=== PATIENT | female | born 1960 | race Caucasian/White ===

== ENCOUNTER 2021-03-12 07:43 | Emergency (ER) | payer SELFPAY ==
[2021-03-12 07:58] VITALS: BP 131/82; PULSE 93; RESP 18; TEMP 36.9; O2SAT 98; BMI 20.5
--- NOTE | 2021-03-12 08:17 | ED_ITS ---
HPI - Head Injury General Chief complaint: Head Injury Stated complaint: trunk lid came down on side of head Time Seen by Provider: 03/12/21 08:16 Source: patient and other (friend at bedside) Mode of arrival: Ambulatory Limitations: no limitations History of Present Illness HPI Narrative: This is a 60-year-old female comes with complaint of laceration to the left forehead. Patient states that the trunk of her cough has had trouble closing. She states that she has been using a stick in order to hold it and this had fallen on the ground. When she bent over to grape picker a stick the trunk fell closed hitting her on the side of her head causing a laceration. Patient states her head is feeling better now initially was painful. Patient states that it did bleed initially but has stopped. She denies any dizziness, no loss of consciousness, no neck or back pain. No nausea. No vomiting. She denies any new numbness, tingling or weakness. Patient denies any other major medical issues at this time. She states she is not on any daily medications. She denies any anticoagulant. She is a daily smoker. She is unsure if her tetanus is up-to-date. Patient does describe herself as homeless. We discussed if she would be interested in having our social welfare research worker reach out to her. She does express interest and states she has also been in contact with the service out of [facility]. Related Data Allergies Allergy/AdvReac Type Severity Reaction Status Date / Time No Known Drug Allergies Allergy Verified 03/12/21 07:58 Review of Systems Review of Systems ROS Unobtainable: All systems reviewed & are unremarkable except as noted in HPI and below Patient History Social History Smoking Status: Current every day smoker Smoking Status: Current every day smoker tobacco type: cigarettes alcohol intake frequency: other Substance Use Type: marijuana Exam Narrative Exam Narrative: GEN: Patient appears in mild distress. HEAD: Patient has a laceration on the left forehead, it is well aligned without gap, no raccoon/Magana sign. NECK: Nontender, painless range of motion, trachea midline Negative Nexus criteria, there is no mid line tenderness, distracting injury, altered mental status, neuro deficit, recent EtOH. EYES: PERRLA, EOMI ENT: External inspection normal, trachea is midline, TM's are normal no hemotypanum, Nares are clear, no septal hematoma, no dental or oral injury, airway is normal and with normal occlusion, No bony tenderness RESP: Chest is nontender and has symmetric movement, no ecchymosis, breath so unds are normal no crackles, wheezes or rales CVS: Heart sounds are normal, no murmur noted, No JVD. ABG/GI: Nontender, soft, normal bowel sounds, no distention, no organomegaly. NEURO: Oriented AOx3, neuro is grossly intact, sensation and motor is normal all 4 extremities moving, cranial nerves II through XII are intact, GCS is 15 PSYCH: Normal mood and affect SKIN: Intact other than above, warm and dry, no crepitus and without decubitus BACK: No CVA tenderness, no vertebral tenderness, no step-off's, no crepitus EXT: Atraumatic, hips are nontender, normal range of motion. Initial Vital Signs Initial Vital Signs: Vital Signs Temperature 98.4 F 03/12/21 07:58 Pulse Rate 93 H 03/12/21 07:58 Respiratory Rate 18 03/12/21 07:58 Blood Pressure 131/82 03/12/21 07:58 Pulse Oximetry 98 03/12/21 07:58 Procedures Laceration Repair Laceration 1: Site: face Side (If applicable): left (forehead above left brow) Size (cm): 3 Description: linear Depth: simple, single layer Pre-repair: irrigated extensively (cleansed with saline) Skin layer closed with: dermabond (and steristrips.) Scores [place] Head Rule Age <16 years old: No Patient on blood thinners: No Seizure after injury: No Exclusion: Patient NOT Excluded, Proceed to next steps GCS [place] coma scale eye opening: Spontaneous [place] coma scale verbal response: Orientated [place] coma scale motor response: Obey commands Philip coma scale total score: 15 Course Orders Ordered: Discontinued Medications Diphtheria/Tetanus/Acell Pertussis (Tet,Diph,Pertuss(Acell),Vac/Pf 0.5 Ml Syringe) 0.5 ml IM .ONCE ONE Stop: 03/12/21 08:26 Last Admin: 03/12/21 08:51 Dose: 0.5 ml Documented by: VERONICA Vital Signs Vital signs: Vital Signs - 8 hr 03/12/21 07:58 Temperature 98.4 F Pulse Rate 93 H Respiratory Rate 18 Blood Pressure 131/82 Pulse Oximetry 98 MDM - Head Injury MDM Narrative Medical decision making narrative: This is a 60-year-old female with a laceration to the left forehead. After evaluation discussed with patient offered sutures versus Dermabond and Steri-Strips. I think patient would heal well with either option and patient defers sutures. Patient does not have any high risk factors that would necessitate imaging. No signs or symptoms of concussion. Discharge Plan Departure Patient Disposition: Home Clinical Impression: Forehead laceration Instructions: DI for Laceration Repair-Skin Glue Activity Restrictions/Additional Instructions: You may take Tylenol and/or ibuprofen as needed for pain. Wound Care: Keep wound(s) clean and dry. Wash daily with soap and water only. Pat dry. Trim edges of the steri-strips if they start to peel off. Do not use over the counter products (alcohol or peroxide)on the wounds unless instructed by a physician. This will cause the dermabond to disintegrate. If wound condition worsens (increased/expanding redness, developing fluid blisters, or worsening pain), either contact your doctor for an urgent re- assessment , or return to the Emergency Department. Return to the Emergency Department for any new or worsening symptoms. Return if fever greater than 100.4 Fahrenheit, increased swelling, increasing pain or worsening symptoms such as increased discharge or spreading redness. Confusion, altered mental status, severe headaches, persistent vomiting, vision changes, new weakness numbness or tingling or other new or concerning symptoms.
[2021-03-12] MEDS: TET,DIPH,PERTUSS(ACELL),VAC/PF 0.5 ML SYRINGE IM (08:51)
== END 2021-03-12 08:55 | disposition home or self-care (01) ==
PROVIDERS: Emergency Provider Emergency Medicine
DX: S01.81XA Laceration without foreign body of other part of head, initial encounter (principal); W22.8XXA Striking against or struck by other objects, initial encounter; Z23 Encounter for immunization
CPT/HCPCS: 90471; 99283; 90715

== ENCOUNTER → 2022-07-16 16:38 | Outpatient (CLI) | payer OTHER, MEDICAID, SELFPAY | PROVIDERS: Visit Provider Nurse Practitioner Family | DX: L08.9 Local infection of the skin and subcutaneous tissue, unspecified (principal) | CPT/HCPCS: 87070; 87075; 87077; 87147; 87205; 87252 ==